=== PATIENT | male | born 1940 | race Asian ===

== ENCOUNTER 2016-12-31 14:08 | Outpatient (CLI) | payer OTHER ==
[~2016-12-31 14:08] MED LIST: ACID CONTROL20 MG OR; BENZ100C8 PO; CADUET10 MG/10 M OR; FLOVENT DISK50 MCG IN; HYDR25TA60 PO; LIPITOR40 MG PO; METO25TA4 PO; MONTELUKAST SOD10 MG PO; OMEP20CA PO; RANI150T78 PO; SIMV40TA57 PO; ZESTRIL40 MG PO
[2016-12-31 14:45] LABS: PLATELET COUNT 267 K/uL (142-355)
== END 2016-12-31 19:10 | disposition home or self-care (01) ==
LOC: LAB 14:08
PROVIDERS: Nurse Practitioner Family
DX: I25.10 Atherosclerotic heart disease of native coronary artery without angina pectoris (principal); M10.9 Gout, unspecified; E78.4 Other hyperlipidemia; I10 Essential (primary) hypertension; Z79.899 Other long term (current) drug therapy; R39.198 Other difficulties with micturition; Z12.5 Encounter for screening for malignant neoplasm of prostate
CPT/HCPCS: 80053; 80061; 83036; 84439; 84443; 84550; 85027; G0103

== ENCOUNTER 2018-01-28 15:16 | Outpatient (CLI) | payer OTHER ==
[2018-01-28 16:06] LABS: PLATELET COUNT 290 K/uL (142-355)
[2018-01-28 16:34] LABS: POTASSIUM 3.8 mmol/L (3.6-5.2)
== END 2018-01-28 16:20 | disposition home or self-care (01) ==
LOC: LAB 15:16
PROVIDERS: Nurse Practitioner Family
DX: Z00.00 Encounter for general adult medical examination without abnormal findings (principal); R53.82 Chronic fatigue, unspecified; R53.81 Other malaise; R39.198 Other difficulties with micturition; Z79.899 Other long term (current) drug therapy; Z51.81 Encounter for therapeutic drug level monitoring
CPT/HCPCS: 80053; 80061; 83036; 84154; 84436; 84443; 85027